=== PATIENT | male | born 1990 | race Hispanic/Latino ===

== ENCOUNTER 2025-01-07 18:11 | Emergency (ER) | payer OTHER, BC ==
[~2025-01-07] VITALS: Ht 172.7 cm; Wt 89.4 kg
[2025-01-07] MEDS ORDERED: DIPHTH,PERTUSS(ACELL),TET VAC 0.5 ML SYRINGE IM ONE (18:30)
[2025-01-07] MEDS ORDERED: LIDOCAINE/RACEPINEP/TETRACAINE 3 ML SYR TOP ONE (19:30)
[2025-01-07 19:57] VITALS: BP 123/85
== END 2025-01-07 19:57 | disposition home or self-care (01) ==
LOC: ED 18:11
DX: S61.214A Laceration without foreign body of right ring finger without damage to nail, initial encounter (principal); W26.0XXA Contact with knife, initial encounter; Z23 Encounter for immunization
CPT/HCPCS: 12001; 90471; 90715; 99282-25